=== PATIENT | female | born 1980 ===

== ENCOUNTER → 2020-10-01 | Outpatient (CLI) | payer OTHER | END | disposition home or self-care (01) | LOC: LAB 11:15 → LAB SHORT 11:15 | DX: R30.0 Dysuria (principal) | CPT/HCPCS: 87086 ==

== ENCOUNTER → 2022-09-10 | Outpatient (CLI) | payer OTHER ==
[2022-09-10 20:29] LABS: Candida species (DNA Probe) Negative (NEGATIVE); G. vaginalis (DNA Probe) Negative (NEGATIVE); T. vaginalis (DNA Probe) Negative (NEGATIVE)
[2022-09-13 05:12] LABS: HSV-1 DNA Negative (Negative); HSV-2 DNA Negative (Negative)
== END | disposition home or self-care (01) ==
LOC: LAB SHORT 11:55 → LAB 11:55
PROVIDERS: Nurse Practitioner Family
DX: R10.2 Pelvic and perineal pain (principal)
CPT/HCPCS: 87086; 87480; 87510; 87529; 87660

== ENCOUNTER → 2024-04-23 | Outpatient (CLI) | payer OTHER | LOC: LAB 09:30 → LAB SHORT 09:30 | DX: R30.0 Dysuria (principal) | CPT/HCPCS: 87086 ==